=== PATIENT | male | born 1995 | race Caucasian/White ===

== ENCOUNTER 2019-01-16 19:14 | Emergency (ER) | payer BC ==
[~2019-01-16] VITALS: Ht 172.7 cm; Wt 68.0 kg
[2019-01-16] MEDS ORDERED: IBUPROFEN 600 MG TABLET PO ONE ×2 (20:13→20:30)
--- NOTE | 2019-01-16 20:16 | NUR ---
BIBSELF FROM . TO ER BED 6. AAOX4. NAD, BREATHING EVEN AND UNLABORED. AMBUALTORY. C/O SCROTAL AND PENILE RASHES STARTED 3 DAYS AGO. PT REPORTS PAIN 8/10 SHARP. NOTED RASHES, REDNESS, OPEN LESSIONS AND GREENISH DISCHARGE. PT DENIES BEING SEXUALLY ACTIVE. MD HERZOG. ORDERS RECEIVED, NOTED AND CARRIED OUT.
[2019-01-16 20:23] LABS: APPEARANCE,URINE Clear (CLEAR); BILIRUBIN,URINE Negative (NEGATIVE); BLOOD, URINE Trace-intact Ery/uL (NEGATIVE); COLOR,URINE Yellow (YELLOW); KETONES,URINE Negative (NEGATIVE); LEUKOCYTE ESTERASE ,URINE Negative (NEGATIVE); NITRITE, URINE Negative (NEGATIVE); PH,URINE 6.5 (5.0-8.0); PROTEIN,URINE Negative (NEGATIVE); UGLUCOSE Negative (NEGATIVE); UROBILINOGEN,URINE 0.2 EU/dL (0.2)
[2019-01-16 20:39] LABS: BACTERIA,URINE Rare /HPF (None Seen); SQUAMOUS EPITHELIAL CELL,UR Few /HPF (None Seen); WBC,URINE NONE SEEN /HPF (0-3)
--- NOTE | 2019-01-16 22:36 | NUR ---
PT OK TO DISCHARGE PER JAMES CASTILLO. Patient discharged to home in stable condition. Written and verbal after care instructions given. Patient verbalizes understanding of instruction.Patient is awake and alert to self, day, and place. PT ambulatory with a steady gait
[2019-01-16 22:39] VITALS: BP 132/79
== END 2019-01-16 22:40 | disposition home or self-care (01) ==
LOC: ER 19:19
DX: N49.2 Inflammatory disorders of scrotum (principal)
CPT/HCPCS: 76870-TC; 81000-TC